=== PATIENT | male | born 1950 | race Caucasian/White ===

== ENCOUNTER 2022-01-15 12:09 | Outpatient (CLI) | payer MEDICARE, BC | END 2022-01-15 12:10 | disposition home or self-care (01) | LOC: CSHCT 12:09 | PROVIDERS: ATTEND Surgery | DX: M50.20 Other cervical disc displacement, unspecified cervical region (principal); M48.02 Spinal stenosis, cervical region; M47.812 Spondylosis without myelopathy or radiculopathy, cervical region; M47.12 Other spondylosis with myelopathy, cervical region | CPT/HCPCS: 70498; 82565 ==